=== PATIENT | male | born 1975 | race Two or more races ===

== ENCOUNTER → 2024-04-03 06:38 | Day surgery (SDC) | payer BC, SELFPAY | LOC: GI 06:38 | PROVIDERS: ATTENDING PHYSICIAN Internal Medicine Gastroenterology | DX: Z12.11 Encounter for screening for malignant neoplasm of colon (principal); K64.8 Other hemorrhoids; K62.89 Other specified diseases of anus and rectum; D12.2 Benign neoplasm of ascending colon | CPT/HCPCS: 45385; 88305 ==